=== PATIENT | female | born 1965 | race Caucasian/White ===

== ENCOUNTER 2017-02-05 06:23 | Day surgery (SDC) | payer BC ==
[2017-02-02 10:16] VITALS: BP 161/90
[~2017-02-05] VITALS: Ht 170.2 cm; Wt 68.0 kg
[~2017-02-05 06:23] MED LIST: BUSP10TA PO; CHOL200024 PO; LEVO100T5 PO; LEVO75TA PO; OXYC-302 PO; OXYC5TAB3 PO; SERT25TA PO
[2017-02-05] MEDS ORDERED: LACTATED RINGERS 1,000 ML IV SCH (06:55)
[2017-02-05] MEDS ORDERED: LIDOCAINE 1%, 2ML SQ PRN (07:00)
[2017-02-05 07:36] LABS: HCG UR OBC PASS
[2017-02-05] MEDS ORDERED: FENTANYL PF 100 MCG/2ML ONE ×3 (07:59→09:58)
[2017-02-05] MEDS ORDERED: MIDAZOLAM 1 MG/ML, 2ML ONE (07:59)
[2017-02-05] MEDS ORDERED: KETAMINE 10 MG/ML, 20ML ONE (07:59)
[2017-02-05] MEDS ORDERED: MEPERIDINE/PF 25MG/0.5ML IVPush PRN (08:30)
[2017-02-05] MEDS ORDERED: PROMETHAZINE 25 MG/ML, 1ML IV PRN (08:30)
[2017-02-05] MEDS ORDERED: OXYcodone 5 MG/5 ML ORAL.SOL UDC PO PRN (08:30)
[2017-02-05] MEDS ORDERED: ACETAMINOPHEN 325 MG TABLET PO PRN (08:30)
[2017-02-05] MEDS ORDERED: BUPIVACAINE/PF 0.5% INFIL ONE (09:12)
[2017-02-05] MEDS: FENTANYL PF 100 MCG/2ML IV PRN ×3 (09:28→10:01)
[2017-02-05] MEDS ORDERED: HYDROmorphone 1 MG/ML, 1ML ONE (09:28)
[2017-02-05] MEDS ORDERED: OXYcodone 5 MG/5 ML ORAL.SOL UDC ONE (09:29)
[2017-02-05] MEDS: HYDROmorphone 1 MG/ML, 1ML IV PRN ×2 (09:43→09:55)
[2017-02-05] MEDS ORDERED: ACETAMINOPHEN 650 MG/20.3 ML UDC ONE (09:52)
[2017-02-05] MEDS ORDERED: ACETAMINOPHEN 325 MG TABLET ONE (09:58)
[2017-02-05] MEDS ORDERED: PROPOFOL 10 MG/ML, 20ML ONE (16:10)
[2017-02-05] MEDS ORDERED: DEXAMETHASONE 4 MG/ML, 1ML ONE (16:10)
[2017-02-05] MEDS ORDERED: ONDANSETRON 2MG/ML, 2ML ONE (16:10)
[2017-02-05] MEDS ORDERED: CEFAZOLIN 1,000 MG ONE (16:10)
== END 2017-02-05 11:30 | disposition home or self-care (01) ==
LOC: OUT 06:23
PROVIDERS: ATTEND Orthopaedic Surgery
DX: T84.84XA Pain due to internal orthopedic prosthetic devices, implants and grafts, initial encounter (principal); G89.18 Other acute postprocedural pain; E03.9 Hypothyroidism, unspecified; Z98.890 Other specified postprocedural states; Z88.8 Allergy status to other drugs, medicaments and biological substances; Z91.018 Allergy to other foods; Y83.1 Surgical operation with implant of artificial internal device as the cause of abnormal reaction of the patient, or of later complication, without mention of misadventure at the time of the procedure
CPT/HCPCS: 20680; 73590; 76000; 81025; J0690; J1100; J1170; J2250; J2405; J2704; J3010; J3490; J7120